=== PATIENT | male | born 1985 | race African-American/Black ===

== ENCOUNTER 2019-07-14 00:43 | Emergency (ER) | payer SELFPAY | END 2019-07-14 01:05 | disposition home or self-care (01) | LOC: MADERS 00:43 | DX: R11.2 Nausea with vomiting, unspecified (principal); J45.909 Unspecified asthma, uncomplicated; F31.9 Bipolar disorder, unspecified; F17.210 Nicotine dependence, cigarettes, uncomplicated | CPT/HCPCS: 99283 ==

== ENCOUNTER 2019-07-24 15:34 | Emergency (ER) | payer SELFPAY ==
[2019-07-24] MEDS ORDERED: Silver Sulfadiazine 1% Cream 50 GM TUBE ONE (15:51)
== END 2019-07-24 16:21 | disposition home or self-care (01) ==
LOC: MADERS 15:34
DX: T24.202A Burn of second degree of unspecified site of left lower limb, except ankle and foot, initial encounter (principal); T20.10XA Burn of first degree of head, face, and neck, unspecified site, initial encounter; T22.112A Burn of first degree of left forearm, initial encounter; T24.101A Burn of first degree of unspecified site of right lower limb, except ankle and foot, initial encounter; T31.0 Burns involving less than 10% of body surface; Z71.6 Tobacco abuse counseling; J45.909 Unspecified asthma, uncomplicated; F31.9 Bipolar disorder, unspecified; F17.210 Nicotine dependence, cigarettes, uncomplicated; X04.XXXA Exposure to ignition of highly flammable material, initial encounter
CPT/HCPCS: 16020; 99406

== ENCOUNTER 2019-07-28 08:16 | Emergency (ER) | payer SELFPAY ==
[2019-07-28] MEDS ORDERED: Bacitracin 1 PK ONE (08:44)
== END 2019-07-28 09:22 | disposition home or self-care (01) ==
LOC: MADERS 08:16
DX: T24.202D Burn of second degree of unspecified site of left lower limb, except ankle and foot, subsequent encounter (principal); T24.102D Burn of first degree of unspecified site of left lower limb, except ankle and foot, subsequent encounter; T31.0 Burns involving less than 10% of body surface; J45.909 Unspecified asthma, uncomplicated; F31.9 Bipolar disorder, unspecified; F17.210 Nicotine dependence, cigarettes, uncomplicated; X19.XXXD Contact with other heat and hot substances, subsequent encounter
CPT/HCPCS: 99282

== ENCOUNTER 2019-12-15 11:09 | Emergency (ER) | payer SELFPAY ==
[2019-12-15 12:01] LABS: Bilirubin Negative (Negative); Blood, Urine Negative (Negative); Clarity Clear (Clear); Glucose, Urine (Dipstick) Negative (Negative); Ketone, Urine Negative (Negative); Leukocyte Trace (Negative); Nitrite Negative (Negative); Protein, Urine (Dipstick) Negative (Neg-Trace); Urobilinogen 0.2 mg/dL (Less than 2); pH, Urine 5.5 (5.0-9.0)
[2019-12-15 12:07] LABS: Bacteria/HPF Rare-Few HPF (None Seen); RBC/HPF 0-3 HPF (0-3); Squamous Epithelial 0-3 HPF (0-3); WBC/HPF 0-3 HPF (0-3)
== END 2019-12-15 12:26 | disposition home or self-care (01) ==
LOC: MADERS 11:09
DX: T67.5XXA Heat exhaustion, unspecified, initial encounter (principal); F17.210 Nicotine dependence, cigarettes, uncomplicated; F31.9 Bipolar disorder, unspecified
CPT/HCPCS: 81003; 81015; 99284

== ENCOUNTER 2020-03-26 13:30 | Emergency (ER) | payer SELFPAY ==
[2020-03-26 14:19] LABS: Bilirubin Negative (Negative); Blood, Urine Negative (Negative); Clarity Clear (Clear); Glucose, Urine (Dipstick) Negative (Negative); Ketone, Urine Negative (Negative); Leukocyte Trace (Negative); Nitrite Negative (Negative); Protein, Urine (Dipstick) Negative (Neg-Trace); Specific Gravity, Urine 1.025 (1.005-1.030); Urobilinogen 0.2 mg/dL (Less than 2); pH, Urine 7.5 (5.0-9.0)
[2020-03-26 14:23] LABS: RBC/HPF None Seen HPF (0-3)
[2020-03-26 14:24] LABS: Bacteria/HPF 1+ HPF (None Seen); Mucous/LPF None Seen LPF (<2+); Squamous Epithelial 0-3 HPF (0-3); WBC/HPF 0-3 HPF (0-3)
[2020-03-27 03:05] LABS: SARS-CoV-2 MS2 Positive; SARS-CoV-2 N Gene Negative; SARS-CoV-2 S Gene Negative; SARS-CoV-2 by NAA Not Detected (NotDetected); SARS-CoV-2 orf1ab Negative
[2020-03-27 19:24] LABS: Chlam.trachomatis by PCR,Urine DETECTED (NotDetected)
== END 2020-03-26 14:37 | disposition home or self-care (01) ==
LOC: MADERS 13:30
DX: J06.9 Acute upper respiratory infection, unspecified (principal); R35.0 Frequency of micturition; Z20.828 Contact with and (suspected) exposure to other viral communicable diseases; F17.210 Nicotine dependence, cigarettes, uncomplicated
CPT/HCPCS: 36416; 81003; 81015; 87491; 87591; 87635; 87804; 99283; U0003

== ENCOUNTER 2020-12-14 10:52 | Emergency (ER) | payer SELFPAY ==
[2020-12-14] MEDS ORDERED: Ondansetron ODT 4 MG TAB ONE (11:33)
[2020-12-15 19:07] LABS: SARS-CoV-2 PCR by NAA DETECTED (NotDetected)
== END 2020-12-14 12:14 | disposition home or self-care (01) ==
LOC: MADERS 10:52
DX: U07.1 COVID-19 (principal); J45.909 Unspecified asthma, uncomplicated; Z87.891 Personal history of nicotine dependence
CPT/HCPCS: 99284; Q0162; U0003; U0005

== ENCOUNTER 2021-05-06 02:40 | Emergency (ER) | payer SELFPAY ==
[2021-05-06] MEDS ORDERED: Ondansetron ODT 4 MG TAB ONE (03:03)
[2021-05-06 22:50] LABS: SARS-CoV-2 PCR by NAA Not Detected (NotDetected)
== END 2021-05-06 03:10 | disposition home or self-care (01) ==
LOC: MADERS 02:40
DX: R50.9 Fever, unspecified (principal); R05.9 Cough, unspecified; Z20.822 Contact with and (suspected) exposure to COVID-19; F17.210 Nicotine dependence, cigarettes, uncomplicated
CPT/HCPCS: 99406; Q0162; U0003; U0005

== ENCOUNTER 2022-05-14 03:27 | Emergency (ER) | payer OTHER, SELFPAY ==
[2022-05-14] MEDS ORDERED: Morphine 4 MG/ML VIAL ONE (03:46)
[2022-05-14] MEDS ORDERED: Lidocaine 1% (PF) 30 ML VIAL ONE (03:58)
[2022-05-14] MEDS ORDERED: Sodium Chloride 0.9% 100 ML ONE (04:00)
[2022-05-14] MEDS ORDERED: CEFAZOLIN 1 GM VIAL ONE (04:00)
[2022-05-14 04:32] LABS: #Basophils 0.1 thou/uL (0.0-0.2); #Eosinphils 0.2 thou/uL (0.0-0.7); #Lymphocytes 1.7 thou/uL (1.20-3.40); #Monocytes 0.7 thou/uL (0.11-0.59); %Basophils 1.2 % (0.0-1.0); %Eosinophils 4.2 % (0.0-10.0); %Lymphocytes 36.1 % (21.0-51.0); %Monocytes 14.4 % (0.0-10.0); %Neutrophils 44.2 % (42.0-75.0); Hemoglobin 12.7 g/dL (14.0-18.0); Mean Corpuscular Hemoglobin 30.6 pg (27.0-31.0); Mean Corpuscular Volume 90.1 fl (78.0-98.0); Mean Platelet Volume 6.9 fL (7.4-10.4); Platelet Count 226 10x3/uL (130-400); RBC Distribution Width 11.1 % (11.5-14.5); Red Blood Cell (RBC) Count 4.14 mill/uL (4.70-6.10); White Blood Cell (WBC) Count 4.6 10x3/uL (4.8-10.8)
[2022-05-14 04:44] LABS: PTT 31.7 sec (22.9-36.1); Prothrombin Time 13.9 sec (12.0-14.7)
[2022-05-14 04:50] LABS: Anion Gap 14 mmol/L (10-20); BUN (Urea Nitrogen) 18 mg/dL (8.9-20.6); Calc. Creatinine Clearance 0 mL/min (70-130); Calcium 8.8 mg/dL (7.8-10.44); Carbon Dioxide 23 mmol/L (22-29); Chloride 105 mmol/L (98-107); Estimated GFR 108; Glucose 105 mg/dL (70-105); Potassium 4.1 mmol/L (3.5-5.1); Sodium 138 mmol/L (136-145)
== END 2022-05-14 05:32 | disposition home or self-care (01) ==
LOC: MADERS 03:27
DX: S62.630B Displaced fracture of distal phalanx of right index finger, initial encounter for open fracture (principal); J45.909 Unspecified asthma, uncomplicated; W20.8XXA Other cause of strike by thrown, projected or falling object, initial encounter; Y99.0 Civilian activity done for income or pay; Z87.891 Personal history of nicotine dependence
CPT/HCPCS: 12002; 80048; 85025; 85610; 85730; 96365; 96372; J0690; J2001; J2270; J3490

== ENCOUNTER 2022-05-30 09:59 | Emergency (ER) | payer SELFPAY | END 2022-05-30 10:57 | disposition home or self-care (01) | LOC: MADERS 09:59 | DX: Z48.01 Encounter for change or removal of surgical wound dressing (principal); S67.190D Crushing injury of right index finger, subsequent encounter; F17.210 Nicotine dependence, cigarettes, uncomplicated; W23.0XXD Caught, crushed, jammed, or pinched between moving objects, subsequent encounter | CPT/HCPCS: 99283 ==

== ENCOUNTER 2022-07-31 12:23 | Emergency (ER) | payer SELFPAY ==
[2022-07-31 13:32] LABS: #Basophils 0.1 thou/uL (0.0-0.2); #Lymphocytes 1.4 thou/uL (1.20-3.40); #Monocytes 0.4 thou/uL (0.11-0.59); #Neutrophils 4.6 thou/uL (1.40-6.50); %Basophils 2.1 % (0.0-1.0); %Eosinophils 0.3 % (0.0-10.0); %Lymphocytes 21.5 % (21.0-51.0); %Monocytes 6.3 % (0.0-10.0); %Neutrophils 69.8 % (42.0-75.0); Hemoglobin 15.8 g/dL (14.0-18.0); Mean Corpuscular HGB CONC 31.8 g/dL (32.0-36.0); Mean Corpuscular Hemoglobin 29.7 pg (27.0-31.0); Mean Corpuscular Volume 93.5 fl (78.0-98.0); Mean Platelet Volume 7.3 fL (7.4-10.4); Platelet Count 282 10x3/uL (130-400); RBC Distribution Width 12.1 % (11.5-14.5); Red Blood Cell (RBC) Count 5.31 mill/uL (4.70-6.10); White Blood Cell (WBC) Count 6.5 10x3/uL (4.8-10.8)
[2022-07-31 13:47] LABS: ALT (SGPT) 10 U/L (8-55); AST (SGOT) 49 U/L (5-34); Albumin 4.9 g/dL (3.5-5.0); Alkaline Phosphatase 114 U/L (40-110); Anion Gap 18 mmol/L (10-20); BUN (Urea Nitrogen) 19 mg/dL (8.9-20.6); Bilirubin, Total 2.9 mg/dL (0.2-1.2); Calc. Creatinine Clearance 0 mL/min (70-130); Calcium 10.2 mg/dL (7.8-10.44); Carbon Dioxide 24 mmol/L (22-29); Chloride 102 mmol/L (98-107); Estimated GFR 91; Globulin 3.1 g/dL (2.4-3.5); Glucose 75 mg/dL (70-105); Magnesium 2.4 mg/dL (1.6-2.6); Potassium 4.3 mmol/L (3.5-5.1); Sodium 140 mmol/L (136-145)
[2022-07-31 13:49] LABS: Acetaminophen Less than 10.0 mcg/mL (10.0-30.0); Alcohol Less than 10 mg/dL (Less than 10); Salicylate Less than 8.0 mg/dL (15.0-30.0)
[2022-07-31 13:56] LABS: Bicarbonate (HCO3v) 23.9 mmol/L (22.0-28.0); CO2 Tension (PvCO2) 48.1 mmHg (42.0-51.0); Calcium, Ionized 1.14 mmol/L (1.15-1.33); Chloride 105 mmol/L (98-107); Hemoglobin - Calc 16.9 g/dL (14.0-18.0); Potassium 3.8 mmol/L (3.5-5.1); Sodium 140 mmol/L (138-145); T. Carbon Dioxide 25.4 mmol/L (22.0-28.0); vO2 Saturation-calc 84.8 % (60.0-85.0)
== END 2022-07-31 14:00 | disposition left against medical advice (07) ==
LOC: MADERS 12:23
DX: T59.811A Toxic effect of smoke, accidental (unintentional), initial encounter (principal); F17.210 Nicotine dependence, cigarettes, uncomplicated
CPT/HCPCS: 36415; 71045; 80053; 80307; 82330; 82803; 83605; 83735; 83880; 84484; 85025; 85379; 87804; 93005

== ENCOUNTER 2023-02-13 13:45 | Emergency (ER) | payer SELFPAY | END 2023-02-13 15:49 | disposition left against medical advice (07) | LOC: MADERS 13:45 | DX: Z53.21 Procedure and treatment not carried out due to patient leaving prior to being seen by health care provider (principal) ==

== ENCOUNTER 2023-04-06 19:06 | Emergency (ER) | payer OTHER ==
[2023-04-06] MEDS ORDERED: Boostrix 0.5 ML (Tdap) VIAL (>/=7 yrs of age) ONE (20:18)
== END 2023-04-06 20:37 | disposition home or self-care (01) ==
LOC: MADERS 19:06
DX: S61.012A Laceration without foreign body of left thumb without damage to nail, initial encounter (principal); F17.210 Nicotine dependence, cigarettes, uncomplicated; W22.8XXA Striking against or struck by other objects, initial encounter
CPT/HCPCS: 12001; 90471; 90715

== ENCOUNTER 2023-09-22 13:44 | Emergency (ER) | payer OTHER | END 2023-09-22 14:09 | disposition home or self-care (01) | LOC: MADERS 13:44 | DX: Z00.00 Encounter for general adult medical examination without abnormal findings (principal); F17.210 Nicotine dependence, cigarettes, uncomplicated | CPT/HCPCS: 99281 ==

== ENCOUNTER 2023-10-20 11:07 | Emergency (ER) | payer OTHER ==
[2023-10-20 12:06] LABS: Bilirubin Negative (Negative); Blood, Urine Small (Negative); Clarity Clear (Clear); Glucose, Urine (Dipstick) Negative (Negative); Ketone, Urine Negative (Negative); Leukocyte Negative (Negative); Nitrite Negative (Negative); Protein, Urine (Dipstick) Negative (Neg-Trace); Urobilinogen 0.2 mg/dL (Less than 2); pH, Urine 5.5 (5.0-9.0)
[2023-10-20 12:07] LABS: Bacteria/HPF Rare-Few HPF (None Seen); CAUTI Indications for Culture Pelvic or flank pain; RBC/HPF 0-3 HPF (0-3); Specific Gravity, Urine 1.026 (1.002-1.036); Squamous Epithelial 0-3 HPF (0-3); WBC/HPF 0-3 HPF (0-3)
[2023-10-20 12:08] LABS: Urine Culture Reflex No No
[2023-10-20 12:30] LABS: Anion Gap 13 mmol/L (10-20); BUN (Urea Nitrogen) 13 mg/dL (8.9-20.6); Calc. Creatinine Clearance 0 mL/min (70-130); Calcium 9.4 mg/dL (7.8-10.44); Carbon Dioxide 23 mmol/L (22-29); Chloride 105 mmol/L (98-107); Estimated GFR 102; Glucose 86 mg/dL (70-105); Potassium 4.4 mmol/L (3.5-5.1); Sodium 137 mmol/L (136-145)
[2023-10-20] MEDS ORDERED: cefTRIAXone (ROCEPHIN) 500 MG VIAL ONE (13:01)
[2023-10-20] MEDS ORDERED: Azithromycin 250 MG TAB ONE (13:01)
[2023-10-21 11:37] LABS: Chlam.trachomatis by PCR,Urine Not Detected (NotDetected); GC N.gonorrhoeae PCR,UrineVOID Not Detected (NotDetected)
== END 2023-10-20 13:11 | disposition home or self-care (01) ==
LOC: MADERS 11:07
DX: N34.1 Nonspecific urethritis (principal); F17.210 Nicotine dependence, cigarettes, uncomplicated
CPT/HCPCS: 36415; 80048; 81001; 87491; 87591; 99283; J0696

== ENCOUNTER 2023-10-25 16:26 | Emergency (ER) | payer OTHER ==
[2023-10-25] MEDS ORDERED: Orphenadrine Citrate 60 MG/2 ML VIAL ONE (17:39)
[2023-10-25] MEDS ORDERED: Ketorolac Tromethamine 10 MG TAB ONE (17:39)
== END 2023-10-25 17:53 | disposition home or self-care (01) ==
LOC: MADERS 16:26
DX: S93.402A Sprain of unspecified ligament of left ankle, initial encounter (principal); S46.912A Strain of unspecified muscle, fascia and tendon at shoulder and upper arm level, left arm, initial encounter; F17.210 Nicotine dependence, cigarettes, uncomplicated; V89.2XXA Person injured in unspecified motor-vehicle accident, traffic, initial encounter
CPT/HCPCS: 71045; 72040; 96372; J2360

== ENCOUNTER 2024-03-06 10:30 | Emergency (ER) | payer OTHER ==
[2024-03-06] MEDS ORDERED: Lidocaine 1% PF 5 ML VIAL ONE (10:39)
== END 2024-03-06 11:20 | disposition home or self-care (01) ==
LOC: MADERS 10:30
DX: S61.412A Laceration without foreign body of left hand, initial encounter (principal); F17.290 Nicotine dependence, other tobacco product, uncomplicated; W26.0XXA Contact with knife, initial encounter
CPT/HCPCS: 12001; 99283

== ENCOUNTER 2024-03-21 07:44 | Emergency (ER) | payer OTHER ==
[2024-03-21 08:19] LABS: #Basophils 0.1 thou/uL (0.0-0.2); #Eosinophils 0.2 thou/uL (0.0-0.7); #Lymphocytes 1.2 thou/uL (1.20-3.40); #Monocytes 0.5 thou/uL (0.11-0.59); #Neutrophils 3.7 thou/uL (1.40-6.50); %Basophils 1.3 % (0.0-1.0); %Lymphocytes 20.4 % (21.0-51.0); %Monocytes 8.8 % (0.0-10.0); %Neutrophils 65.5 % (42.0-75.0); Hematocrit 45.9 % (42.0-52.0); Hemoglobin 14.3 g/dL (14.0-18.0); Mean Corpuscular Hemoglobin 29.4 pg (27.0-31.0); Mean Corpuscular Volume 94.7 fl (78.0-98.0); Mean Platelet Volume 6.3 fL (7.4-10.4); Platelet Count 291 10x3/uL (130-400); RBC Distribution Width 12.5 % (11.5-14.5); Red Blood Cell (RBC) Count 4.85 mill/uL (4.70-6.10); White Blood Cell (WBC) Count 5.7 10x3/uL (4.8-10.8)
[2024-03-21 08:25] LABS: Bilirubin Negative (Negative); Blood, Urine Negative (Negative); Clarity Clear (Clear); Glucose, Urine (Dipstick) Negative (Negative); Ketone, Urine Negative (Negative); Leukocyte Negative (Negative); Nitrite Negative (Negative); Protein, Urine (Dipstick) Negative (Neg-Trace); RBC/HPF 0-3 HPF (0-3); Specific Gravity, Urine 1.025 (1.005-1.030); Urobilinogen 0.2 mg/dL (Less than 2); pH, Urine 5.5 (5.0-9.0)
[2024-03-21 08:26] LABS: Bacteria/HPF Rare-Few HPF (None Seen); CAUTI Indications for Culture Pelvic or flank pain; Squamous Epithelial 0-3 HPF (0-3); WBC/HPF 0-3 HPF (0-3)
[2024-03-21 08:27] LABS: Urine Culture Reflex No No
[2024-03-21 08:32] LABS: Amphetamine Detected (NotDetected); Barbiturates Screen Not Detected (NotDetected); Benzodiazepine Screen Not Detected (NotDetected); Cocaine Metabolite Screen Detected (NotDetected); Methadone Not Detected (NotDetected); Methamphetamine Detected (NotDetected); Opiate Screen Not Detected (NotDetected); Oxycodone Screen Not Detected (NotDetected); Phencyclidine (PCP) Not Detected (NotDetected); THC/Cannabinoid Screen Detected (NotDetected); Tricyclic Screen Not Detected (NotDetected)
[2024-03-21 08:33] LABS: ALT (SGPT) 7 U/L (8-55); AST (SGOT) 13 U/L (5-34); Albumin 3.7 g/dL (3.5-5.0); Alkaline Phosphatase 100 U/L (40-110); Anion Gap 13 mmol/L (10-20); BUN (Urea Nitrogen) 12 mg/dL (8.9-20.6); Bilirubin, Total 0.6 mg/dL (0.2-1.2); Calc. Creatinine Clearance 0 mL/min (70-130); Calcium 8.9 mg/dL (7.8-10.44); Carbon Dioxide 25 mmol/L (22-29); Chloride 107 mmol/L (98-107); Estimated GFR 76; Glucose 66 mg/dL (70-105); Potassium 4.3 mmol/L (3.5-5.1); Protein, Total 6.7 g/dL (6.0-8.3); Sodium 141 mmol/L (136-145)
[2024-03-21 08:34] LABS: Acetaminophen Less than 10 mcg/mL (Less than 10); Alcohol Less than 10.0 mg/dL (Less than 10); Salicylate Less than 8.0 mg/dL (Less than 8.0)
[2024-03-21] MEDS ORDERED: Nicotine 7 MG PATCH ONE (11:41)
== END 2024-03-21 11:57 ==
LOC: MADERS 07:44
DX: R45.851 Suicidal ideations (principal); F17.210 Nicotine dependence, cigarettes, uncomplicated
CPT/HCPCS: 80053; 80306; 80307; 81001; 85025; 93005; 99285

== ENCOUNTER 2024-04-18 17:25 | Emergency (ER) | payer OTHER ==
[2024-04-18] MEDS ORDERED: Acetaminophen 500 MG TAB ONE (17:48)
== END 2024-04-18 18:00 | disposition home or self-care (01) ==
LOC: MADERS 17:25
DX: S01.81XA Laceration without foreign body of other part of head, initial encounter (principal); F17.210 Nicotine dependence, cigarettes, uncomplicated; W22.8XXA Striking against or struck by other objects, initial encounter; Y93.89 Activity, other specified
CPT/HCPCS: 12013; 99282